=== PATIENT | male | born 1985 | race Caucasian/White ===

== ENCOUNTER 2018-11-08 01:24 | Emergency (ER) | payer OTHER ==
[2018-11-08] MEDS ORDERED: ALBUTEROL 3 ML DEYVIAL IH ONE (01:33)
[2018-11-08] MEDS ORDERED: NS 1,000 ML IV ONE (01:33)
--- NOTE | 2018-11-08 01:35 | EDPHY ---
H & P Stated Complaint: ALLERGY TO PEANUTS, TROUBLE BREATHING, ATE PEANUTS Time Seen by Provider: 11/08/18 01:28 HPI/ROS: Chief Complaint: Allergic reaction HPI: 33-year-old male with difficulty breathing and throat swelling. Patient has a history of a peanut allergy. Patient accidentally ate a peanut bar 30 min ago. He attempted to self administers EpiPen but is much of the medicine leaked out over him. He has had similar episodes in the past. No recent illness. No fainting. No chest pain. ROS: 10 systems were reviewed and were negative except those elements noted in the HPI. PMH: Peanut allergy Social History: No smoking, no alcohol, no recreational drug use Family History: non-contributory Physical Exam: Gen: Awake, Alert, No Distress, no stridor HEENT: Nose: no rhinorrhea Eyes: PERRLA, EOMI Mouth: Moist mucosa moderate oral pharyngeal edema, Neck: Supple, no JVD Chest: nontender, moderate diffuse expiratory wheezing Heart: S1, S2 normal, no murmur Abd: Soft, non-tender, no guarding Back: no CVA tenderness, no midline tenderness Ext: no edema, non-tender Skin: no rash Neuro: CN II-XII intact, Sensation grossly intact, Strength 5/5 in bilateral upper and lower extremities - Personal History Current Tetanus/Diphtheria Vaccine: Yes Current Tetanus Diphtheria and Acellular Pertussis (TDAP): Yes - Medical/Surgical History Hx Asthma: Yes Hx Chronic Respiratory Disease: No Hx Diabetes: No Hx Cardiac Disease: No Hx Renal Disease: No Hx Cirrhosis: No Hx Alcoholism: No Hx HIV/AIDS: No Hx Splenectomy or Spleen Trauma: No Other PMH: ALLERGY TO PEANUTS - Social History Smoking Status: Never smoked Constitutional: Initial Vital Signs Temperature (C) 36.6 C 11/08/18 01:25 Heart Rate 125 H 11/08/18 01:25 Respiratory Rate 20 11/08/18 01:25 Blood Pressure 138/94 H 11/08/18 01:25 O2 Sat (%) 78 L 11/08/18 01:25 O2 Delivery Mode Nasal Cannula O2 (L/minute) 6 Allergies/Adverse Reactions: peanut [Peanut] Allergy (Unknown, Verified 11/08/18 01:28) blue dye 1 Allergy (Unknown, Uncoded 11/08/18 01:28) Home Medications: Medication Instructions Recorded Albuterol PRN 08/20/11 Albuterol [Proventil Inhaler HFA 1 - 2 puffs IH Q4PRN PRN #1 mdi 08/20/11 (*)] Prednisone 20 mg PO BID #6 08/20/11 EPINEPHrine [Epipen 0.3 MG] 0.3 mg IM ONCE #2 syr 11/08/18 predniSONE 60 mg PO DAILY #9 tab 11/08/18 Medical Decision Making ED Course/Re-evaluation: 33-year-old male presenting with acute anaphylaxis. I have given him epinephrine, Benadryl, Solu-Medrol, Pepcid and a DuoNeb. Will reassess. Patient is significantly improved. He has been observed for several hours in the emergency department. Swelling has gone down. He he is asking to go home. I have written prescriptions for new epi pens. Prednisone for 3 days and continue Benadryl. Return for any concerns. - Data Points Medications Given: Discontinued Medications Albuterol (Proventil Neb) 3 ml IH EDNOW ONE Stop: 11/08/18 01:34 Last Admin: 11/08/18 01:36 Dose: 3 ml Diphenhydramine HCl (Benadryl Injection) 50 mg IVP EDNOW ONE Stop: 11/08/18 01:37 Last Admin: 11/08/18 01:24 Dose: 50 mg Epinephrine HCl (Epinephrine) 1 mg IV ONCE ONE Stop: 11/08/18 01:41 Last Admin: 11/08/18 01:25 Dose: 1 mg Sodium Chloride (Ns) 1,000 mls @ 0 mls/hr IV EDNOW ONE; Wide Open PRN Reason: Protocol Stop: 11/08/18 01:34 Last Admin: 11/08/18 01:28 Dose: 1,000 mls Ranitidine HCl (Zantac) 50 mg IVP EDNOW ONE Stop: 11/08/18 01:37 Last Admin: 11/08/18 01:28 Dose: 50 mg Departure - Departure Disposition: Home, Routine, Self-Care Clinical Impression: Acute anaphylaxis, Allergic reaction Instructions: Anaphylaxis (ED), General Allergic Reaction (ED), Peanut Allergy (ED) Additional Instructions: Please take your full course of prednisone. Continue taking Benadryl 50 mg every 4-6 hours for the next 24 hr. Administer the EpiPen at any time that you feel like her having an allergic reaction which is causing you difficulty breathing. Follow up with primary care physician in 3-4 days for further evaluation. Return to the emergency department for increasing difficulty breathing, throat swelling, hives, fainting, or any other concerns. Referrals: Henok Zelaya MD [[facility] [place] Primary Care Provider] - As per Instructions Prescriptions: EPINEPHrine [Epipen 0.3 MG] 0.3 mg IM ONCE #2 syr predniSONE 60 mg PO DAILY #9 tab
[2018-11-08] MEDS ORDERED: RANITIDINE 50 MG/2 ML VIAL IVP ONE (01:36)
[2018-11-08] MEDS ORDERED: methylPREDNISolone SOD SUCC 125 MG/2 ML VIAL ONE (01:40)
[2018-11-08] MEDS ORDERED: EPINEPHrine 30 MG/30 ML MDV (0.1 MG/0.1 ML) IV ONE (01:40)
[2018-11-08] MEDS ORDERED: RANITIDINE 50 MG/2 ML VIAL ONE (01:40)
[2018-11-08] MEDS ORDERED: EPINEPHrine 1 MG/ML INJ ONE (01:40)
[2018-11-08] MEDS ORDERED: ONDANSETRON 4 MG/2 ML VIAL ONE (01:45)
[2018-11-08] MEDS ORDERED: diphenhydrAMINE 25 MG CAP PO ONE ×2 (04:26→04:27)
[2018-11-08 04:41] VITALS: BP 126/87
== END 2018-11-08 04:25 | disposition home or self-care (01) ==
DX: R22.1 Localized swelling, mass and lump, neck (principal); T78.01XA Anaphylactic reaction due to peanuts, initial encounter; E86.9 Volume depletion, unspecified
CPT/HCPCS: 96374; J0171; J1200; J2405; J2780; J2930; J7613